=== PATIENT | male | born 1980 | race Caucasian/White ===

== ENCOUNTER → 2020-04-20 | Outpatient (CLI) | payer OTHER ==
--- NOTE | 2020-04-20 12:17 | CT ---
EXAMINATION TYPE: CT wrist LT wo con DATE OF EXAM: 04/20/2020 COMPARISON: No priors available for comparison HISTORY: 39-year-old male M2 5.532, left wrist pain, non healing fx TECHNIQUE: Contiguous axial scanning of the left wrist without IV contrast. Coronal and sagittal anahi nstructions performed. Reconstructions generated on a dedicated independent workstation. CT DLP: 101.4 mGycm Automated exposure control for dose reduction was used. FINDINGS: Mildly comminuted fracture of the distal radial metaphysis and epiphysis. The dominant fragment is an oblique fracture involving the radial styloid process extending to the mid radial articular surface measuring up to 2.1 x 2.1 x 2.3 cm. Most of this fracture fragment has sclerotic margins. There is monique ccessful in along the volar 10 x 6 mm portion. The fracture deformity results in a 1.6 cm wide by 1.8 cm AP region of irregularity along the articul ar surface. Additional fragments show areas of bridging, for example, a 1.6 x 0.8 x 0.3 cm fragment along the stephanie flash distal radius. Corticated bone fragments at the ulnar styloid process compatible with sequela of prior injury. There is some spurring at the distal radioulnar joint. Osteopenia. Old screw tracts are demonstrated in the distal radius. IMPRESSION: 1. 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 The fracture deformity results in a 1.8 x 1.6 cm area of radial articular surface irregularity. 2. The dominant fragment measures 2.3 x 2.1 x 2.1 cm involving the radial styloid process extending t o the mid radial articular surface. Most of this fracture is nonunited but there is successful bony u nion involving a 10 x 6 mm volar portion. 3. Dorsal fragment measuring 1.6 x 0.8 x 0.3 cm shows some bony union along the ulnar aspect. 4. 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
== END | disposition home or self-care (01) ==
LOC: RADCTMAIN 10:37
PROVIDERS: ATTEND Orthopaedic Surgery Hand Surgery
DX: S59.202A Unspecified physeal fracture of lower end of radius, left arm, initial encounter for closed fracture (principal); S52.612A Displaced fracture of left ulna styloid process, initial encounter for closed fracture; M21.832 Other specified acquired deformities of left forearm

== ENCOUNTER → 2020-05-29 | Outpatient (CLI) | payer OTHER ==
--- NOTE | 2020-05-30 08:05 | NM ---
EXAMINATION TYPE: NM WBC limited DATE OF EXAM: 05/29/2020 COMPARISON: CT left wrist 04/20/2020 HISTORY: Pain TECHNIQUE: Following administration of 11.4 mCi Tc99m Ceretec. Images obtained 4 hours post injecti on. FINDINGS: Limited scanning was performed over the wrists. Mild increased uptake noted in the left wrist is comp ared to the right. Focal uptake is not identified. IMPRESSION: Mild increased uptake noted in the left wrist is compared to the right is nonspecific
== END | disposition home or self-care (01) ==
LOC: RADNMMAIN 06:40
PROVIDERS: ATTEND Orthopaedic Surgery Hand Surgery
DX: R94.8 Abnormal results of function studies of other organs and systems (principal); G56.01 Carpal tunnel syndrome, right upper limb; M25.532 Pain in left wrist; M25.531 Pain in right wrist; R20.2 Paresthesia of skin; S52.512D Displaced fracture of left radial styloid process, subsequent encounter for closed fracture with routine healing; S52.615D Nondisplaced fracture of left ulna styloid process, subsequent encounter for closed fracture with routine healing; S52.511D Displaced fracture of right radial styloid process, subsequent encounter for closed fracture with routine healing
CPT/HCPCS: 78300; A9569